=== PATIENT | male | born 1985 | race Caucasian/White ===

== ENCOUNTER 2021-06-22 11:35 | Inpatient (IN) | payer OTHER ==
[~2021-06-22] VITALS: Ht 172.7 cm; Wt 88.9 kg
[2021-06-22] MEDS ORDERED: IV NS 0.9% 500 ML BAG IV ONE (12:00)
[2021-06-22 12:42] LABS: BASOPHILS % (AUTO) 0.5 % (0.0-2.0); EOSINOPHILS % (AUTO) 1.6 % (0.0-6.0); HEMATOCRIT 37 % (39-51); HEMOGLOBIN 12.5 g/dL (13.5-17.5); LYMPHOCYTES # (AUTO) 1.6 K/uL (0.8-4.8); LYMPHOCYTES % (AUTO) 23.6 % (20.0-44.0); MEAN CORPUSCULAR HGB CONC 34 g/dl (31.0-36.0); MEAN CORPUSCULAR VOLUME 89 fL (80-96); MONOCYTES # (AUTO) 0.4 K/uL (0.1-1.30); MONOCYTES % (AUTO) 5.3 % (2.0-12.0); NEUTROPHILS # (AUTO) 4.6 K/uL (1.8-8.9); PLATELET COUNT (AUTO) 294 K/uL (150-450); RED BLOOD CELL COUNT(AUTO) 4.22 MIL/uL (4.5-6.0); WHITE BLOOD COUNT (AUTO) 6.7 K/uL (4.3-11.0)
[2021-06-22 12:50] LABS: CALCIUM, SERUM 9.4 mg/dL (8.5-10.1); CREATININE 0.7 mg/dL (0.6-1.3); POTASSIUM 3.3 mmol/L (3.5-5.1)
[2021-06-22 12:58] LABS: ALBUMIN 3.9 g/dL (3.4-5.0); BILIRUBIN,DIRECT 0.1 mg/dL (0.0-0.2); BILIRUBIN,TOTAL 0.4 mg/dL (0.2-1.0)
[2021-06-22 14:48] LABS: BILIRUBIN,URINE NEGATIVE (NEGATIVE); COLOR,URINE YELLOW (YELLOW); LEUKOCYTE ESTERASE ,URINE NEGATIVE (NEGATIVE); NITRITE, URINE NEGATIVE (NEGATIVE); PROTEIN,URINE NEGATIVE (NEGATIVE); UGLUCOSE NEGATIVE (NEGATIVE); UROBILINOGEN,URINE 0.2 EU/dL (0.2)
[2021-06-22] MEDS ORDERED: Magnesium 1 GM/2 ML VIAL IV ONE (15:00)
[2021-06-22] MEDS ORDERED: Magnesium 1GM/D5W 100ML PREMIX 200 ML IV ONE (15:19)
[2021-06-22] MEDS: Magnesium 1GM/D5W 100ML PREMIX 100 ML IV SCH ×2 (15:29→16:33)
[2021-06-22] MEDS ORDERED: IV NS 0.9% 1,000 ML BAG IV ONE (16:00)
[2021-06-22] MEDS ORDERED: IV NS 0.9% 1,000 ML IV PRN (20:30)
[2021-06-22] MEDS ORDERED: MAGNESIUM HYDROXIDE 30 ML UDC PO PRN (20:30)
[2021-06-22] MEDS ORDERED: ACETAMINOPHEN 325 MG TABLET PO PRN (20:30)
[2021-06-22] MEDS ORDERED: MAG HYDROX/AL HYDROX/SIMETH 30 ML UDC PO PRN (20:30)
[2021-06-22] MEDS ORDERED: ONDANSETRON HCL/PF 4 MG/2 ML VIAL IVP PRN (20:30)
[2021-06-23 00:15] VITALS: BP 113/73
[2021-06-23] MEDS ORDERED: IV PREMIX 0.45% NS + KCL 1,000 ML IV ONE (02:25)
[2021-06-23 04:00] VITALS: BP 111/71
[2021-06-23] MEDS ORDERED: ZYPREXA (06:52)
[2021-06-23 06:53] LABS: BASOPHILS % (AUTO) 0.2 % (0.0-2.0); EOSINOPHILS % (AUTO) 1.9 % (0.0-6.0); HEMATOCRIT 37 % (39-51); HEMOGLOBIN 12.3 g/dL (13.5-17.5); LYMPHOCYTES # (AUTO) 1.9 K/uL (0.8-4.8); LYMPHOCYTES % (AUTO) 27.9 % (20.0-44.0); MEAN CORPUSCULAR HGB CONC 34 g/dl (31.0-36.0); MEAN CORPUSCULAR VOLUME 88 fL (80-96); MONOCYTES # (AUTO) 0.5 K/uL (0.1-1.30); MONOCYTES % (AUTO) 7.5 % (2.0-12.0); NEUTROPHILS # (AUTO) 4.2 K/uL (1.8-8.9); NEUTROPHILS % (AUTO) 62.5 % (43.0-81.0); PLATELET COUNT (AUTO) 279 K/uL (150-450); RED BLOOD CELL COUNT(AUTO) 4.15 MIL/uL (4.5-6.0); WHITE BLOOD COUNT (AUTO) 6.8 K/uL (4.3-11.0)
[2021-06-23 07:52] LABS: ALBUMIN 3.3 g/dL (3.4-5.0); BILIRUBIN,TOTAL 0.5 mg/dL (0.2-1.0); CALCIUM, SERUM 8.9 mg/dL (8.5-10.1); CREATININE 0.7 mg/dL (0.6-1.3); MAGNESIUM 2.4 mg/dL (1.8-2.4); PHOSPHORUS 3.4 mg/dL (2.5-4.9); POTASSIUM 3.4 mmol/L (3.5-5.1); TOTAL PROTEIN, SERUM 6.9 g/dL (6.4-8.2)
[2021-06-23 08:00] VITALS: BP 113/65
[2021-06-23] MEDS ORDERED: POTASSIUM CHLORIDE 20 MEQ TAB.PRT.SR PO ONE (08:30)
[2021-06-23] MEDS: POTASSIUM CL. PREMIX PERIPHER. 50 ML IV SCH ×4 (09:20→12:19)
[2021-06-23] MEDS ORDERED: HALOPERIDOL 5 MG TABLET PO PRN (11:30)
[2021-06-23] MEDS ORDERED: BENZTROPINE MESYLATE (1 MG) 1 MG TABLET PO PRN (11:30)
[2021-06-23 12:00] VITALS: BP 133/80
[2021-06-23 16:00] VITALS: BP 113/69
[2021-06-23 20:00] VITALS: BP 100/61
[2021-06-24] VITALS: BP 109/60
[2021-06-24 04:00] VITALS: BP 111/63
[2021-06-24 06:47] LABS: BASOPHILS % (AUTO) 0.2 % (0.0-2.0); EOSINOPHILS % (AUTO) 1.1 % (0.0-6.0); HEMATOCRIT 38 % (39-51); LYMPHOCYTES # (AUTO) 1.5 K/uL (0.8-4.8); LYMPHOCYTES % (AUTO) 19.6 % (20.0-44.0); MEAN CORPUSCULAR HGB CONC 35 g/dl (31.0-36.0); MEAN CORPUSCULAR VOLUME 88 fL (80-96); MONOCYTES # (AUTO) 0.6 K/uL (0.1-1.30); MONOCYTES % (AUTO) 7.3 % (2.0-12.0); NEUTROPHILS # (AUTO) 5.6 K/uL (1.8-8.9); NEUTROPHILS % (AUTO) 71.8 % (43.0-81.0); PLATELET COUNT (AUTO) 289 K/uL (150-450); WHITE BLOOD COUNT (AUTO) 7.8 K/uL (4.3-11.0)
[2021-06-24 06:48] LABS: CREATININE 0.7 mg/dL (0.6-1.3); POTASSIUM 3.6 mmol/L (3.5-5.1)
[2021-06-24 08:00] VITALS: BP 130/85
[2021-06-24] MEDS: LORAZEPAM 1 MG TABLET PO PRN ×2 (10:49→17:42)
[2021-06-24] MEDS ORDERED: BUPR1FIL7 SL (11:23)
[2021-06-24] MEDS ORDERED: GABA600T12 PO (11:23)
[2021-06-24 12:00] VITALS: BP 132/85
[2021-06-24] MEDS: GABAPENTIN 300 MG CAPSULE PO SCH ×2 (14:39→16:20)
[2021-06-24 16:00] VITALS: BP 137/89
[2021-06-24] MEDS ORDERED: CLON0.1T PO (16:06)
[2021-06-24] MEDS ORDERED: METH750T3 PO (16:06)
[2021-06-24] MEDS ORDERED: TRAZ-257 PO (16:06)
[2021-06-24] MEDS ORDERED: LISD30CA2 PO (16:06)
[2021-06-24] MEDS ORDERED: FOLI0.8C PO (16:06)
[2021-06-24] MEDS ORDERED: QUET50TA PO (16:06)
[2021-06-24] MEDS ORDERED: ONDA4TAB5 PO (16:06)
[2021-06-24] MEDS ORDERED: THIA100T70 PO (16:06)
[2021-06-24] MEDS ORDERED: LORA-259 PO ×2 (16:06)
[2021-06-24] MEDS ORDERED: BUPR-319 PO (16:06)
[2021-06-24 20:00] VITALS: BP 121/76
[2021-06-24] MEDS ORDERED: LORAZEPAM 1 MG TABLET PO ONE (20:30)
[2021-06-24] MEDS ORDERED: buPROPion SR 150 MG TABLET.ER PO ONE (21:00)
[2021-06-25] MEDS: LORAZEPAM 1 MG TABLET PO PRN ×2 (06:20→12:02)
[2021-06-25] MEDS ORDERED: ONDANSETRON 4 MG TAB.RAPDIS PO PRN (07:30)
[2021-06-25] MEDS: GABAPENTIN 300 MG CAPSULE PO SCH ×2 (08:28→12:02)
[2021-06-25] MEDS: CLONIDINE HCL 0.1 MG TABLET PO SCH ×2 (08:30→12:02)
[2021-06-25 08:45] VITALS: BP 124/77
[2021-06-25] MEDS ORDERED: FOLIC ACID 1 MG TABLET PO SCH (09:00)
[2021-06-25] MEDS ORDERED: THIAMINE HCL 100 MG TABLET PO SCH (09:00)
[2021-06-25 12:14] VITALS: BP 118/78
[2021-06-25 16:05] VITALS: BP 117/64
== END 2021-06-25 13:15 | DRG 917 ==
LOC: ER 11:35 → MED 22:32 → TELE 23:35
PROVIDERS: ADMIT Nurse Practitioner Acute Care; ATTEND Hospitalist
DX: T43.591A Poisoning by other antipsychotics and neuroleptics, accidental (unintentional), initial encounter (principal); G92.8 Other toxic encephalopathy; E44.1 Mild protein-calorie malnutrition; E88.09 Other disorders of plasma-protein metabolism, not elsewhere classified; Z59.00 Homelessness unspecified; F10.229 Alcohol dependence with intoxication, unspecified; Y90.2 Blood alcohol level of 40-59 mg/100 ml; E87.6 Hypokalemia; F39 Unspecified mood [affective] disorder; D64.9 Anemia, unspecified; Y92.89 Other specified places as the place of occurrence of the external cause; F19.10 Other psychoactive substance abuse, uncomplicated; Z68.29 Body mass index [BMI] 29.0-29.9, adult; Z20.822 Contact with and (suspected) exposure to COVID-19; E86.0 Dehydration
CPT/HCPCS: 36415; 80048-TC; 80053-TC; 80076-TC; 83690-TC; 83735-TC; 84100-TC; 85025-TC; 87081-TC; C9803; G0378; G0480; J3475; J3480; J3490; J7030; J7040

== ENCOUNTER 2021-10-06 22:12 | Emergency (ER) | payer OTHER ==
[~2021-10-06] VITALS: Ht 188 cm; Wt 90.7 kg
[~2021-10-06 22:12] MED LIST: BUPR-319 PO; BUPR1FIL7 SL; CLON0.1T PO; FOLI0.8C PO; GABA600T12 PO; LISD30CA2 PO; LORA-259 PO; METH750T3 PO; ONDA4TAB5 PO; QUET50TA PO; THIA100T70 PO; TRAZ-257 PO
[2021-10-06 23:18] VITALS: BP 127/84
--- NOTE | 2021-10-06 23:20 | NUR ---
BIBS C/O BILATERAL FEET PAIN. PT AMBULATORY WITH STEADY GAIT. TOLERATING R/A WELL WITH NO SOB
[2021-10-06] MEDS ORDERED: IBUPROFEN 400 MG TABLET ONE (23:25)
[2021-10-06] MEDS ORDERED: IBUPROFEN 400 MG TABLET PO ONE (23:30)
--- NOTE | 2021-10-06 23:33 | NUR ---
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
--- NOTE | 2021-10-06 23:47 | NUR ---
Patient discharged to home in stable condition. Written and verbal after care instructions given. Patient verbalizes understanding of instruction.
== END 2021-10-06 23:48 | disposition home or self-care (01) ==
LOC: ER 22:21
DX: M79.671 Pain in right foot (principal); M79.672 Pain in left foot; F17.200 Nicotine dependence, unspecified, uncomplicated; Z59.00 Homelessness unspecified; Z79.899 Other long term (current) drug therapy
CPT/HCPCS: 73630-TC

== ENCOUNTER 2021-10-09 12:03 | Emergency (ER) | payer OTHER ==
[~2021-10-09] VITALS: Ht 182.9 cm; Wt 90.7 kg
--- NOTE | 2021-10-09 12:03 | NUR ---
SECURITY AT BEDSIDE FOR WANDING.
--- NOTE | 2021-10-09 12:05 | NUR ---
AT BEDSIDE FOR EVAL.
[2021-10-09] MEDS ORDERED: PROPRANOLOL HCL 10 MG TABLET ONE (12:10)
[2021-10-09] MEDS ORDERED: PROP10TA68 PO (12:12)
[2021-10-09 12:13] VITALS: BP 145/75
--- NOTE | 2021-10-09 12:28 | NUR ---
Patient given written and verbal discharge instructions. Patient verbalizes understanding of instructions. Patient is ambulatory with steady gait. Refuses offer of [facility] placement. Patient given list of available shelters in surrounding area.
[2021-10-09] MEDS ORDERED: PROPRANOLOL HCL 10 MG TABLET PO SCH (12:30)
== END 2021-10-09 12:33 | disposition home or self-care (01) ==
LOC: ER 12:04
DX: F41.9 Anxiety disorder, unspecified (principal); F15.10 Other stimulant abuse, uncomplicated; F19.10 Other psychoactive substance abuse, uncomplicated; Z79.899 Other long term (current) drug therapy